=== PATIENT | male | born 1975 | race Caucasian/White ===

== ENCOUNTER 2019-05-06 23:06 | Emergency (ER) | payer BC ==
[2019-05-06 23:14] VITALS: PULSE 67; RESP 16; TEMP 97.7
--- NOTE | 2019-05-06 23:27 | ED ---
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 Patient is currently on summer break and states that he was spinning today helping a friend do yard work and was shoveling most of the day. Patient states that this evening he has noticed some pain in his left lateral chest. Patient reports that the pain is worse with deep inspiration or moving. There is no relieving factors to the pain. Pain is not associated with any shortness of breath, diaphoresis, lightheadedness. Patient reports that he is able to exercise regularly without ever developing chest pain shortness breath or lightheadedness. He has no personal cardiac history no history of hypertension, hyperlipidemia, diabetes, smoking. He has no family history of early cardiac disease. - Related Data Previous Rx's Medication Instructions Recorded Ibuprofen [Motrin] 800 mg PO TID #30 tab 05/07/19 Lidocaine 5% Patch [Lidoderm] 1 patch TOPICAL DAILY #30 patch 05/07/19 Allergies Allergy/AdvReac Type Severity Reaction Status Date / Time No Known Allergies Allergy Verified 05/06/19 23:13 Review of Systems ROS Statement: Those systems with pertinent positive or pertinent negative responses have been documented in the HPI. ROS Other: All systems not noted in ROS Statement are negative. EKG Findings - EKG Comments: EKG Findings:: EKG was obtained due to complaint chest pain, EKG obtained at 2337, rate is 64 rhythm is sinus there is normal axis there are normal intervals, SC 158 week uterus 98, QTC is 414. There is no acute ST elevation or depression there is no evidence of acute ischemia or infarction. Past Medical History Past Medical History: No Reported History Past Surgical History: No Surgical Hx Reported Past Psychological History: No Psychological Hx Reported Smoking Status: Never smoker Past Alcohol Use History: None Reported, Occasional Past Drug Use History: None Reported General Exam - General Exam Comments Initial Comments: Physical Exam GENERAL: Patient is well-developed and well-nourished. Patient is nontoxic and well- hydrated and is in no distress. HENT: Normocephalic, Atraumatic. EYES: PERRL, EOMI PULMONARY: Unlabored respirations. No audible rales rhonchi or wheezing was noted. CARDIOVASCULAR: There is a regular rate and rhythm without any murmurs gallops or rubs. ABDOMEN: Soft and nontender with normal bowel sounds. SKIN: Skin is clear with no lesions or rashes and otherwise unremarkable. : Deferred NEUROLOGIC: Patient is alert and oriented x3. Moving all extremities spontaneously MUSCULOSKELETAL: Normal extremities with adequate strength and full range of motion. No lower extremity swelling or edema. No calf tenderness. PSYCHIATRIC: Normal psychiatric evaluation Limitations: no limitations Course Vital Signs 05/06/19 05/07/19 23:10 01:49 Temperature 97.7 F Pulse Rate 67 67 Respiratory 16 16 Rate Blood Pressure 133/85 136/86 O2 Sat by Pulse 97 100 Oximetry Chest Pain MDM - MDM The patient was seen and evaluated, history is obtained from the patient and signed history and physical exam are not concerning for cardiac etiology given the patient's health status, EKG is nonischemic however we will obtain labs and imaging Chest x-ray with no signs of pneumothorax or any acute pathology labs were unremarkable Lidoderm patch and Toradol. Workup with No evidence of ACS, pericarditis, myocarditis, pulmonary embolism, pneumothorax, pneumonia, Zoster, or esophageal perforation. Historically not abrupt in onset, tearing or ripping, pulses symmetric, no evidence of aortic dissection. I reassessed the patient reported feeling better. Patient is reassured that this is not cardiac etiology and is comfortable with plan for discharge home at this time. Disposition Clinical Impression: Atypical chest pain Disposition: HOME SELF-CARE Condition: Stable Instructions (If sedation given, give patient instructions): Costochondritis (ED) Prescriptions: Lidocaine 5% Patch [Lidoderm] 1 patch TOPICAL DAILY #30 patch Ibuprofen [Motrin] 800 mg PO TID #30 tab Is patient prescribed a controlled substance at d/c from ED?: No Referrals: None,Stated [Primary Care Provider] - 1-2 days
[2019-05-07] LABS: Basophils # (A) 0.1 k/uL (0-0.2); Basophils % (A) 1 %; Eosinophils # (A) 0.3 k/uL (0-0.7); Eosinophils % (A) 4 %; HCT 43.6 % (39.0-53.0); HGB 14.3 gm/dL (13.0-17.5); Lymphocytes # (A) 2.4 k/uL (1.0-4.8); Lymphocytes % (A) 28 %; MCH 29.3 pg (25.0-35.0); MCHC 32.7 g/dL (31.0-37.0); MCV 89.7 fL (80.0-100.0); Mean Platelet Volume 6.6; Monocytes # (A) 0.5 k/uL (0-1.0); Monocytes % (A) 6 %; Neutrophils % (A) 59 %; Platelet Count 315 k/uL (150-450); RBC 4.87 m/uL (4.30-5.90); RDW 13.3 % (11.5-15.5); WBC 8.5 k/uL (3.8-10.6)
[2019-05-07 00:11] LABS: D-Dimer <0.17 mg/L FEU (<0.60); INR 0.9 (<1.2); Partial Thromboplastin Time 24.5 sec (22.0-30.0); Prothrombin Time 9.9 sec (9.0-12.0)
[2019-05-07 00:15] LABS: ALT 23 U/L (21-72); AST 24 U/L (17-59); African American GFR (CKD) >90 (>60 ml/min/1.73 sqM); Albumin 4.8 g/dL (3.5-5.0); Alkaline Phosphatase 59 U/L (38-126); Anion Gap 10 mmol/L; Blood Urea Nitrogen 22 mg/dL (9-20); Calcium 10.1 mg/dL (8.4-10.2); Carbon Dioxide 25 mmol/L (22-30); Chloride 106 mmol/L (98-107); Glucose 86 mg/dL (74-99); Magnesium 2.1 mg/dL (1.6-2.3); Potassium 4.3 mmol/L (3.5-5.1); Sodium 141 mmol/L (137-145); Total Bilirubin 0.9 mg/dL (0.2-1.3); Total Protein 7.3 g/dL (6.3-8.2)
--- NOTE | 2019-05-07 00:23 | XR ---
EXAM: XR Chest, 2 Views CLINICAL HISTORY: ITS.REASON XR Reason: Chest Pain TECHNIQUE: Frontal and lateral views of the chest. COMPARISON: No relevant prior studies available. FINDINGS: Lungs: Unremarkable. No consolidation. Pleural space: Unremarkable. No pneumothorax. Heart: Unremarkable. No cardiomegaly. Mediastinum: Unremarkable. Bones/joints: Unremarkable. IMPRESSION: Normal chest x-rays.
[2019-05-07 01:51] VITALS: BP 136/86
[2019-05-07] MEDS ORDERED: LIDOCAINE 5% PATCH TOPICAL STA (01:52)
[2019-05-07] MEDS ORDERED: KETOROLAC 30 MG/ML 1 ML VIAL IVP ONE (01:52)
== END 2019-05-07 02:13 | disposition home or self-care (01) ==
LOC: EC 23:06
DX: R07.89 Other chest pain (principal)
CPT/HCPCS: 36415; 93005; 85379; 83880; 80053; 83690; 83735; 84484; 85025; 85610; 85730; 71046; 99285; 96374; J1885